=== PATIENT | male | born 1970 | race Caucasian/White ===

== ENCOUNTER 2018-11-09 00:59 | Emergency (ER) | payer OTHER ==
[2018-11-09] MEDS: KETOROLAC 30 MG INJ IM (02:40)
[2018-11-09] MEDS: HYDROCODONE/APAP (10/325) TAB PO (02:43)
== END 2018-11-09 04:25 | disposition home or self-care (01) ==
LOC: FTE 00:59
DX: S93.401A Sprain of unspecified ligament of right ankle, initial encounter (principal); X50.1XXA Overexertion from prolonged static or awkward postures, initial encounter; Y92.9 Unspecified place or not applicable
CPT/HCPCS: 73590; 73610-RT; 73630; 96372; 99284-25

== ENCOUNTER 2018-11-17 01:03 | Emergency (ER) | payer OTHER ==
[2018-11-17] MEDS: IBUPROFEN 600 MG TAB PO (02:28)
== END 2018-11-17 02:40 | disposition home or self-care (01) ==
LOC: FTE 01:03
DX: S93.401A Sprain of unspecified ligament of right ankle, initial encounter (principal); J45.909 Unspecified asthma, uncomplicated; X58.XXXA Exposure to other specified factors, initial encounter; Y92.9 Unspecified place or not applicable
CPT/HCPCS: 99282; L3260